=== PATIENT | male | born 1995 | race Caucasian/White ===

== ENCOUNTER 2017-04-02 06:34 | Emergency (ER) | payer BC ==
[~2017-04-02] VITALS: Ht 172.7 cm; Wt 111.6 kg
--- NOTE | ~2017-04-02 | CR20 ---
[facility] A Service of [facility] & [facility] / [facility] RADIOLOGY TEXT RESULTS PATIENT: LEONORA GRIDER JR LOCATION: SED : 95 UNIT #: [id number] AGE: [address]: David Aquino MD SEX: M ORDER DR: [id number] [place] [id number] E MR#: [id number] #: [id number] NAME: LEONORA GRIDER JR : 1995 SEX: M STUDY DATE/TIME: 04/02/2017 8:17 UNIT: SED ROOM: STUDY DESCRIPTION: CR Ankle Min 3 Views Lt Attending Physician: David Aquino M.D. Ordering Physician: David Aquino M.D. Primary Care Physician: Alec Freeman M.D. MEDICAL IMAGING REPORT This report is preliminary unless electronic signature is present. EXAM Left ankle 3 views HISTORY Medial sided ankle pain, injured ankle playing softball last night. FINDINGS Three views of the left ankle demonstrate no fracture or dislocation. Ankle mortise appears maintained. Talus, subtalar joint unremarkable. Questionable mild medial ankle soft tissue swelling. IMPRESSION Questionable mild medial ankle soft tissue swelling. No visible fracture. Dictated by... Nathaniel Gutierrez M.D. THIS IS AN ELECTRONICALLY VERIFIED REPORT Nathaniel Gutierrez M.D. at 04/03/2017 7:28 AM ARIELA/fred TD: 04/02/2017 13:37 JOB #: [id number] MEDICAL IMAGING REPORT Page 1 of 1
[~2017-04-02 06:34] MED LIST: CLARITIN10 MG PO; CLEOCIN150 MG PO; FLEXERIL PO; FLEXERIL10 MG PO; HYDROCODON-ACE1 EAC7 PO; MEDROL PO; MUSCLE RELAXER; NO MEDICATIONS; PAIN MED; PHENERGAN W/CO120 ML PO; PHENERGAN25 M1 PO; SUDAFED PO; TYLENOL #3 PO; VICODIN PO; VOLTAREN75 MG PO; ZITHROMAX PO; ZYRTEC10 M2 PO
== END 2017-04-02 08:58 | disposition home or self-care (01) ==
LOC: SED 06:34
DX: S90.02XA Contusion of left ankle, initial encounter (principal); F17.200 Nicotine dependence, unspecified, uncomplicated; X58.XXXA Exposure to other specified factors, initial encounter
CPT/HCPCS: 73610; 96372; 99283; J1885